=== PATIENT | female | born 1945 | race Caucasian/White ===

== ENCOUNTER 2023-08-28 15:00 | Inpatient (IN) | payer MEDICARE, OTHER ==
[~2023-08-28] VITALS: Ht 172.7 cm; Wt 120.2 kg
[2023-08-28 15:42] LABS: BASOPHILS # (AUTO) 0.1 (0.0-0.1); BASOPHILS % 0.6 % (0.0-1.0); EOSINOPHILS # (AUTO) 0.3 (0.0-0.4); EOSINOPHILS % 3.1 % (0.0-6.0); HEMATOCRIT 38.6 % (34.2-44.1); LYMPHOCYTES # (AUTO) 3.1 (1.0-3.2); LYMPHOCYTES % 37.1 % (18.0-39.1); MEAN CORPUSCULAR HEMOGLOBIN 21.6 pg (28-32); MEAN CORPUSCULAR HGB CONC 31.1 g/dL (31-35); MEAN CORPUSCULAR VOLUME 69.4 fL (81-99); MONOCYTES # (AUTO) 0.6 (0.2-0.8); MONOCYTES % 6.9 % (4.4-11.3); NEUTROPHILS # (AUTO) 4.4 (2.1-6.9); NEUTROPHILS % 52.2 % (38.7-80.0); PLATELET COUNT 231 x10e3/uL (140-360); RED BLOOD COUNT 5.56 x10e6/uL (3.6-5.1); RED CELL DISTRIBUTION WIDTH 19.2 % (11.7-14.4); WHITE BLOOD COUNT 8.46 x10e3/uL (4.8-10.8)
[2023-08-28] MEDS ORDERED: METOPROLOL SUCCINATE 25 MG TAB XL ONE (15:57)
[2023-08-28 16:00] LABS: PROTHROMBIN TIME 13.9 seconds (11.9-14.5)
[2023-08-28 16:01] LABS: PARTIAL THROMBOPLASTIN TIME 27.1 seconds (23.8-35.5)
[2023-08-28] MEDS: METOPROLOL SUCCINATE 25 MG TAB XL PO ONE (16:01)
[2023-08-28 16:09] LABS: ALANINE AMINOTRANSFERASE 10 IU/L (0-55); ALBUMIN 3.8 g/dL (3.5-5.0); ALBUMIN/GLOBULIN RATIO 1.2 (0.8-2.0); ALKALINE PHOSPHATASE 53 IU/L (40-150); ANION GAP 16.1 mmol/L (8-16); BILIRUBIN,TOTAL 1.2 mg/dL (0.2-1.2); BLOOD UREA NITROGEN 20 mg/dL (7-26); BUN/CREATININE RATIO 21 (6-25); CALCIUM 10.3 mg/dL (8.4-10.2); CARBON DIOXIDE 24 mmol/L (22-29); CHLORIDE 104 mmol/L (98-107); CREATINE KINASE 67 IU/L (29-168); CREATININE, SERUM 0.95 mg/dL (0.57-1.11); EST GLOMERULAR FILTRATION RATE 61 ML/MIN (>=60); GLUCOSE 126 mg/dL (74-118); MAGNESIUM 1.8 MG/DL (1.3-2.1); POTASSIUM 4.1 mmol/L (3.5-5.1); SODIUM 140 mmol/L (136-145); TOTAL PROTEIN 7.1 g/dL (6.5-8.1)
[2023-08-28 16:27] LABS: TROPONIN I < 0.001 ng/mL (0-0.300)
[2023-08-28 16:28] LABS: FREE T4 (FREE THYROXINE) 1.36 ng/dL (0.8-1.8); THYROID STIMULATING HORMONE 3.102 uIU/mL (0.350-4.940)
[2023-08-28 16:31] LABS: BILIRUBIN,URINE NEGATIVE (NEGATIVE); CLARITY,URINE CLEAR (CLEAR); COLOR,URINE YELLOW (YELLOW); GLUCOSE, URINE NEGATIVE (NEGATIVE); KETONES,URINE TRACE (NEGATIVE); LEUKOCYTE ESTERASE ,URINE NEGATIVE (NEGATIVE); NITRITE,URINE NEGATIVE (NEGATIVE); PH,URINE 5.5 (5 - 7); PROTEIN,URINE DIPSTICK NEGATIVE (NEGATIVE); URINE UROBILINOGEN 0.2 mg/dL (0.2 - 1); WBC,URINE (MAN) 0-5 /HPF (0-5)
[2023-08-28 16:32] LABS: BACTERIA,URINE FEW /HPF; EPITHELIAL CELLS,URINE FEW /LPF
[2023-08-28] MEDS ORDERED: ENOXAPARIN SODIUM INJ 100 MG/ML SYR SC ONE (16:48)
[2023-08-28] MEDS: ENOXAPARIN SODIUM INJ 100 MG/ML SYR SC SCH (16:52)
[2023-08-28] MEDS ORDERED: ONDANSETRON HCL INJ 2MG/ML 2ML 2 MG/ML VIAL IV PRN (17:15)
[2023-08-28] MEDS ORDERED: SODIUM CHLORIDE 0.9% 1000ML 1,000 ML ONE (17:34)
[2023-08-28] MEDS ORDERED: FAMOTIDINE 20 MG/2 ML VIAL IV ONE (17:34)
[2023-08-28] MEDS: SODIUM CHLORIDE 0.9% 1000ML 1,000 ML IV ONE (17:37)
[2023-08-28] MEDS: FAMOTIDINE 20 MG/2 ML VIAL IV SCH (17:38)
[2023-08-28 19:40] VITALS: BP 140/73; PULSE 87; RESP 18; TEMP 98.5; O2SAT 100
[2023-08-28] MEDS: METOPROLOL TARTRATE 25 MG TAB PO SCH (22:01)
[2023-08-28] MEDS ORDERED: OMEPRAZOLE40 MG PO (22:31)
[2023-08-28] MEDS ORDERED: STOOL SOFTENER50 MG (22:31)
[2023-08-28] MEDS ORDERED: OSTERA TABLET1 EACH (22:31)
[2023-08-28] MEDS ORDERED: LEVOTHYROXINE50 MCG PO (22:31)
[2023-08-28] MEDS ORDERED: METFORMIN HCL500 M1 PO (22:31)
[2023-08-28] MEDS ORDERED: LOSARTAN POTASS25 MG PO (22:31)
[2023-08-28] MEDS ORDERED: FIBER TABS625 MG PO (22:31)
[2023-08-28] MEDS ORDERED: TRIAMTERENE-HCTZ1 EA PO (22:31)
[2023-08-28] MEDS ORDERED: METOPROLOL TART25 MG PO (22:31)
[2023-08-28] MEDS ORDERED: VITAMIN E400 UNI1 PO (22:31)
[2023-08-28] MEDS ORDERED: ALTOPREV40 MG PO (22:31)
[2023-08-28] MEDS ORDERED: B12 ACTIVE1000 MCG (22:31)
[2023-08-28] MEDS ORDERED: OXYBUTYNIN CHLOR5 MG PO (22:31)
[2023-08-29 00:01] LABS: TROPONIN I 0.046 ng/mL (0-0.300)
[2023-08-29 05:35] LABS: BASOPHILS % 0.4 % (0.0-1.0); EOSINOPHILS # (AUTO) 0.3 (0.0-0.4); EOSINOPHILS % 3.3 % (0.0-6.0); HEMATOCRIT 40.9 % (34.2-44.1); LYMPHOCYTES # (AUTO) 4.3 (1.0-3.2); LYMPHOCYTES % 43.9 % (18.0-39.1); MEAN CORPUSCULAR HEMOGLOBIN 21.2 pg (28-32); MEAN CORPUSCULAR HGB CONC 29.3 g/dL (31-35); MEAN CORPUSCULAR VOLUME 72.3 fL (81-99); MONOCYTES # (AUTO) 0.7 (0.2-0.8); NEUTROPHILS # (AUTO) 4.4 (2.1-6.9); NEUTROPHILS % 45.2 % (38.7-80.0); PLATELET COUNT 255 x10e3/uL (140-360); RED BLOOD COUNT 5.66 x10e6/uL (3.6-5.1); RED CELL DISTRIBUTION WIDTH 19.1 % (11.7-14.4); WHITE BLOOD COUNT 9.74 x10e3/uL (4.8-10.8)
[2023-08-29 06:09] LABS: ALBUMIN 3.6 g/dL (3.5-5.0); ALBUMIN/GLOBULIN RATIO 1.1 (0.8-2.0); ANION GAP 13.7 mmol/L (8-16); BILIRUBIN,TOTAL 1.2 mg/dL (0.2-1.2); CALCIUM 10.3 mg/dL (8.4-10.2); CHOL/HDL RATIO 4.3 (3.0-3.6); CREATININE, SERUM 0.84 mg/dL (0.57-1.11); POTASSIUM 3.7 mmol/L (3.5-5.1)
[2023-08-29 06:38] LABS: TROPONIN I 0.046 ng/mL (0-0.300)
[2023-08-29 08:00] VITALS: BP 140/73; PULSE 65; RESP 18; TEMP 98.5; O2SAT 100
[2023-08-29] MEDS ORDERED: METOPROLOL TARTRATE 50 MG TAB ONE ×3 (11:37→21:37)
[2023-08-29] MEDS ORDERED: SODIUM CHLORIDE 0.9% 1000 ML BAG ONE (11:37)
[2023-08-29] MEDS ORDERED: FAMOTIDINE 20 MG/2 ML VIAL IV ONE ×3 (11:37→17:19)
[2023-08-29] MEDS ORDERED: AMIODARONE HCL 200 MG TAB ONE ×3 (11:37→17:19)
[2023-08-29] MEDS ORDERED: LOSARTAN POTASSIUM 25 MG TAB ONE (11:37)
[2023-08-29] MEDS ORDERED: METOPROLOL TARTRATE 25 MG TAB ONE (11:37)
[2023-08-29] MEDS ORDERED: ENOXAPARIN SOD INJ 40 MG/0.4 ML SYR SC ONE ×2 (11:37→14:52)
[2023-08-29] MEDS: AMIODARONE HCL 200 MG TAB PO SCH (12:16)
[2023-08-29 16:30] VITALS: BP 145/71; PULSE 64; RESP 18; TEMP 98.5; O2SAT 100
[2023-08-29] MEDS ORDERED: ENOXAPARIN SODIUM INJ 100 MG/ML SYR SC ONE (17:19)
[2023-08-29 20:00] VITALS: BP 127/76; PULSE 73; RESP 18; TEMP 98.4; O2SAT 99
[2023-08-29] MEDS: LATANOPROST(OPTH) 2.5 ML BTL OP SCH (21:00)
[2023-08-29] MEDS: METOPROLOL TARTRATE 50 MG TAB PO SCH (22:01)
[2023-08-30] VITALS: BP 125/59; PULSE 66; RESP 18; TEMP 98.6; O2SAT 99
[2023-08-30] MEDS ORDERED: ENOXAPARIN SODIUM INJ 100 MG/ML SYR SC ONE ×2 (05:15→14:56)
[2023-08-30] MEDS ORDERED: FAMOTIDINE 20 MG/2 ML VIAL IV ONE ×2 (05:16→14:56)
[2023-08-30] MEDS ORDERED: AMIODARONE HCL200 MG PO (08:03)
[2023-08-30] MEDS ORDERED: ELIQUIS5 MG PO (08:03)
[2023-08-30] MEDS ORDERED: METOPROLOL TART50 MG PO (08:03)
[2023-08-30] MEDS ORDERED: COZAAR25 MG PO (08:03)
[2023-08-30 08:24] VITALS: BP 123/65; PULSE 62; RESP 18; TEMP 98.3; O2SAT 99
[2023-08-30] MEDS ORDERED: AMIODARONE HCL 200 MG TAB ONE ×2 (10:21→14:56)
[2023-08-30] MEDS ORDERED: LOSARTAN POTASSIUM 25 MG TAB ONE ×2 (10:21→14:56)
[2023-08-30] MEDS ORDERED: METOPROLOL TARTRATE 50 MG TAB ONE ×2 (10:21→14:56)
[2023-08-30 10:23] VITALS: BP 123/65; PULSE 62
[2023-08-30] MEDS: LOSARTAN POTASSIUM 25 MG TAB PO SCH (10:23)
[2023-08-30] MEDS ORDERED: ONDANSETRON HCL 4 MG ORAL DISINTEGRATING TAB PO PRN (11:45)
[2023-08-30] MEDS ORDERED: APIXABAN 5 MG TABLET PO SCH (21:00)
== END 2023-08-30 12:45 | disposition home or self-care (01) | DRG 309 ==
LOC: ER 15:08 → ERHOLD 17:26 → MED/SURG 20:33
PROVIDERS: ADMIT Internal Medicine; ATTEND Internal Medicine
DX: I48.91 Unspecified atrial fibrillation (principal); I50.40 Unspecified combined systolic (congestive) and diastolic (congestive) heart failure; Z68.41 Body mass index [BMI] 40.0-44.9, adult; I44.7 Left bundle-branch block, unspecified; I95.9 Hypotension, unspecified; E66.01 Morbid (severe) obesity due to excess calories; I89.0 Lymphedema, not elsewhere classified; E03.9 Hypothyroidism, unspecified; I11.0 Hypertensive heart disease with heart failure; E11.9 Type 2 diabetes mellitus without complications; M17.0 Bilateral primary osteoarthritis of knee; M54.9 Dorsalgia, unspecified; Z79.82 Long term (current) use of aspirin; Z79.890 Hormone replacement therapy; Z79.84 Long term (current) use of oral hypoglycemic drugs; H40.9 Unspecified glaucoma; Z85.820 Personal history of malignant melanoma of skin; Z11.52 Encounter for screening for COVID-19; Z83.3 Family history of diabetes mellitus; K43.2 Incisional hernia without obstruction or gangrene; I25.10 Atherosclerotic heart disease of native coronary artery without angina pectoris; K21.9 Gastro-esophageal reflux disease without esophagitis; E83.52 Hypercalcemia; E78.5 Hyperlipidemia, unspecified; N32.81 Overactive bladder; M85.80 Other specified disorders of bone density and structure, unspecified site
CPT/HCPCS: 36415; 71045; 80053; 80061; 81001; 82550; 82948; 83036; 83735; 83880; 84439; 84443; 84484; 85025; 85610; 85730; 87040; 87086; 87400; 87420; 93005; 93306; 99284; J1650; J7030; U0002

== ENCOUNTER → 2024-01-15 | Outpatient (REF) | payer MEDICARE ==
[~2024-01-15] MED LIST: ALTOPREV40 MG PO; AMIODARONE HCL200 MG PO; B12 ACTIVE1000 MCG; BACITRACIN15 GM TOP; CLINDAMYCIN HC300 MG PO; COZAAR25 MG PO; ELIQUIS5 MG PO; FIBER TABS625 MG PO; LEVOTHYROXINE50 MCG PO; LOSARTAN POTASS25 MG PO; MACROBID 100 M100 MG PO; METFORMIN HCL500 M1 PO; METOPROLOL TART25 MG PO; METOPROLOL TART50 MG PO; OMEPRAZOLE40 MG PO; ONDANSETRON ODT4 MG PO; OSTERA TABLET1 EACH; OXYBUTYNIN CHLOR5 MG PO; STOOL SOFTENER50 MG; TRIAMTERENE-HCTZ1 EA PO; VITAMIN E400 UNI1 PO
== END ==
LOC: RAD 14:53
PROVIDERS: ATTEND Internal Medicine Critical Care Medicine
DX: J81.1 Chronic pulmonary edema (principal)
CPT/HCPCS: 71046

== ENCOUNTER → 2024-07-19 | Outpatient (REF) | payer MEDICARE | LOC: DX 11:13 | PROVIDERS: ATTEND Internal Medicine | DX: M85.88 Other specified disorders of bone density and structure, other site (principal); E21.0 Primary hyperparathyroidism | CPT/HCPCS: 76536; 77080 ==

== ENCOUNTER → 2025-01-14 | Day surgery (SDC) | payer MEDICARE ==
[2025-01-08 12:37] LABS: BASOPHILS % 0.6 % (0.0-1.0); EOSINOPHILS % 3.2 % (0.0-6.0); LYMPHOCYTES % 38.3 % (18.0-39.1); MONOCYTES % 8.0 % (4.4-11.3); NEUTROPHILS % 49.7 % (38.7-80.0); RED CELL DISTRIBUTION WIDTH 13.0 % (11.7-14.4)
[~2025-01-14] MED LIST changes: +ASPIRIN81 MG PO; +DORZOLAMIDE-TIM10 ML OU; +EPHEDRINE SULFATE INJ 50 MG/ML VIAL ONE; +GLUCAGON FOR INJ 1 MG VIAL ONE; +HYOSCYAMINE SULFATE 0.5 MG/ML INJ ONE; +LATANOPROST2.5 ML OU; +LIDOCAINE HCL 2% LOCAL INJ 5 ML SDV VIAL INJ ONE; +PROPOFOL IV EMULSION 10 MG/ML 20 ML VIAL ONE; +ULTRAM 50MG50 MG PO
[2025-01-14] MEDS: LACTATED RINGER'S 1,000 ML ONE (11:51)
[2025-01-14 13:29] VITALS: TEMP 97.6
[2025-01-14 13:45] VITALS: BP 122/87; PULSE 66; RESP 15; O2SAT 97
== END | disposition home or self-care (01) ==
LOC: OR 11:04
PROVIDERS: ATTEND Internal Medicine Gastroenterology
DX: Z12.11 Encounter for screening for malignant neoplasm of colon (principal); K63.5 Polyp of colon; K59.09 Other constipation; K62.5 Hemorrhage of anus and rectum; K64.4 Residual hemorrhoidal skin tags; K21.9 Gastro-esophageal reflux disease without esophagitis; D64.9 Anemia, unspecified; E11.9 Type 2 diabetes mellitus without complications; I48.91 Unspecified atrial fibrillation; I10 Essential (primary) hypertension; E78.5 Hyperlipidemia, unspecified; E03.9 Hypothyroidism, unspecified; H40.9 Unspecified glaucoma; I44.7 Left bundle-branch block, unspecified; Z88.8 Allergy status to other drugs, medicaments and biological substances; Z91.040 Latex allergy status; Z01.810 Encounter for preprocedural cardiovascular examination; Z01.812 Encounter for preprocedural laboratory examination; Z79.02 Long term (current) use of antithrombotics/antiplatelets; Z79.82 Long term (current) use of aspirin; Z79.84 Long term (current) use of oral hypoglycemic drugs; Z79.899 Other long term (current) drug therapy; Z68.37 Body mass index [BMI] 37.0-37.9, adult; Z71.3 Dietary counseling and surveillance; Z85.820 Personal history of malignant melanoma of skin
CPT/HCPCS: 36415 ×2; 45380; 45385; 82948; 85025; 93005; J1610; J1980; J2003; J2704; J7121; 45378